=== PATIENT | female | born 1995 | race Two or more races ===

== ENCOUNTER 2017-09-19 20:36 | Observation (INO) | payer MEDICAID ==
[~2017-09-19] VITALS: Ht 162.6 cm; Wt 72.6 kg
[2017-09-19 22:49] LABS: CLARITY URINE CLOUDY (CLEAR); COLOR URINE YELLOW (YELLOW); KETONES URINE NEGATIVE (NEGATIVE); LEUKOCYTE ESTERASE URINE NEGATIVE (NEGATIVE); NITRITE URINE NEGATIVE (NEGATIVE); OCCULT BLOOD URINE NEGATIVE (NEGATIVE); PROTEIN URINE NEGATIVE (NEGATIVE); SPECIFIC GRAVITY URINE 1.022 (1.005-1.030); UROBILINOGEN URINE 0.2 E.U./dL (0.2-1.0)
[2017-09-19] MEDS ORDERED: LACTATED RINGERS 1,000 ML IV SCH (23:30)
[2017-09-19] MEDS: CEFAZOLIN 2,000 MG in DEXT 5% WATER 100 ML IV NR ×2 (23:47→23:48)
[2017-09-20] MEDS ORDERED: PREN-55 MT (00:32)
== END 2017-09-20 00:25 | disposition home or self-care (01) ==
LOC: L&D 20:36
PROVIDERS: ADMIT Specialist; ATTEND Specialist
DX: O26.892 Other specified pregnancy related conditions, second trimester (principal); M54.5 Low back pain; Z3A.27 27 weeks gestation of pregnancy
CPT/HCPCS: 81003; 96365; 99281; G0378; J0690; J7120; 96360; J7060

== ENCOUNTER 2017-09-24 15:14 | Observation (INO) | payer MEDICAID ==
[~2017-09-24] VITALS: Ht 162.6 cm; Wt 71.7 kg
[~2017-09-24 15:14] MED LIST: PREN-55 MT
[2017-09-24] MEDS ORDERED: LACTATED RINGERS 1,000 ML IV SCH (15:56)
[2017-09-24] MEDS ORDERED: ONDANSETRON HCL 4MG/2ML VIAL IV NR (16:00)
[2017-09-24 16:41] LABS: CLARITY URINE CLEAR (CLEAR); COLOR URINE YELLOW (YELLOW); KETONES URINE 1+ (NEGATIVE); LEUKOCYTE ESTERASE URINE TRACE (NEGATIVE); NITRITE URINE NEGATIVE (NEGATIVE); OCCULT BLOOD URINE NEGATIVE (NEGATIVE); PH URINE 6.5 (4.5-8.0); PROTEIN URINE NEGATIVE (NEGATIVE); UROBILINOGEN URINE 0.2 E.U./dL (0.2-1.0)
[2017-09-24 16:54] LABS: CHLORIDE 106 mEq/L (98-107)
== END 2017-09-24 17:55 | disposition home or self-care (01) ==
LOC: L&D 15:14
PROVIDERS: ADMIT Obstetrics & Gynecology; ATTEND Obstetrics & Gynecology
DX: O26.893 Other specified pregnancy related conditions, third trimester (principal); R10.9 Unspecified abdominal pain; O21.2 Late vomiting of pregnancy; Z3A.28 28 weeks gestation of pregnancy
CPT/HCPCS: 36415; 80048; 81003; 96361; 96374; 99281; G0378; J2405; J7120; 96360